=== PATIENT | female | born 1980 | race Caucasian/White ===

== ENCOUNTER 2017-01-16 14:43 | Emergency (ER) | payer OTHER ==
[~2017-01-16] VITALS: Ht 157.5 cm; Wt 77.2 kg
[2017-01-16] MEDS ORDERED: DiphenhydrAMINE HCL 50 MG/ML VIAL IM ONE (16:00)
[2017-01-16 16:45] VITALS: BP 126/82
== END 2017-01-16 16:50 | disposition home or self-care (01) ==
LOC: EMS 14:46
DX: O26.891 Other specified pregnancy related conditions, first trimester (principal); L23.9 Allergic contact dermatitis, unspecified cause; G43.909 Migraine, unspecified, not intractable, without status migrainosus; Z98.84 Bariatric surgery status; Z3A.13 13 weeks gestation of pregnancy
CPT/HCPCS: 96372; 99283; J1200